=== PATIENT | female | born 1930 | race Caucasian/White ===

== ENCOUNTER 2017-08-07 06:41 | Emergency (ER) | payer MEDICARE ==
[~2017-08-07] VITALS: Ht 152.4 cm; Wt 61.2 kg
[~2017-08-07 06:41] MED LIST: ALEN70TA3 PO; CALCIUM; HYDR25TA4 PO; NIFE60TA83 PO; OMEGA; VIT; aspirin; potasium; vitamins
[2017-08-07 06:45] VITALS: BP_SYST 129
--- NOTE | 2017-08-07 06:45 | NUR ---
Patient to ER bed 6 to gown for evaluation. Side rails up.
[2017-08-07] MEDS ORDERED: NACL 0.9% 1,000 ML IV ONE (06:58)
[2017-08-07] MEDS ORDERED: KETOROLAC TROMETHAMINE 30 MG VIAL IVP ONE (07:00)
--- NOTE | 2017-08-07 07:00 | NUR ---
Pt complains of epigastric pain that radiates to the right since 2am this morning. Per pt, pain woke her up and took medicine but did not relieve pain. Pt denies fever, N/V or diarrhea, pain/burning upon urination. Pt is AAO x 4 and ambulatory. No other injuries/complaints per patient or noted.
--- NOTE | 2017-08-07 07:01 | NUR ---
ER Dr. John at bedside examining patient.
--- NOTE | 2017-08-07 07:02 | NUR ---
Medication reconciliation completed with information provided by patient. Any prior medication reconciliation on file was reviewed and corrected.
[2017-08-07] MEDS ORDERED: POTASSIUM CHLORIDE PO (07:03)
[2017-08-07 07:29] LABS: HEMATOCRIT 38.1 % (36-48); HEMOGLOBIN 11.9 g/dL (12.0-16.0); MEAN CORPUSCULAR HEMOGLOBIN 25 pg (27-31); MEAN CORPUSCULAR HGB CONC 31 % (32-36); MEAN CORPUSCULAR VOLUME 79 fL (79.0-98.0); PLATELET COUNT (AUTO) 233 K/uL (130-430); RED BLOOD CELL COUNT(AUTO) 4.82 MIL/uL (4.2-6.2); RED CELL DISTRIBUTION WIDTH 14.5 % (9.0-15.0); WHITE BLOOD COUNT (AUTO) 9.7 K/uL (4.8-10.8)
[2017-08-07 07:34] LABS: ANION GAP 7 (5-15); CALCIUM 8.4 mg/dL (8.4-11.0); CHLORIDE 100 mmol/L (98-107); CREATININE 0.51 mg/dL (0.55-1.30); GLUCOSE 140 mg/dL (70-99); POTASSIUM 3.1 mmol/L (3.5-5.1); SODIUM SERUM 137 mmol/L (136-145); UREA NITROGEN, BLOOD 15 mg/dL (8-21)
[2017-08-07 07:44] LABS: ALANINE AMINOTRANSFERASE 19 U/L (12-78); ALBUMIN 3.5 g/dL (3.4-4.8); ASPARTATE AMINOTRANSFERASE 23 U/L (10-37); LIPASE 128 U/L (73-393); TOTAL BILIRUBIN 0.5 mg/dL (0.0-1.0)
[2017-08-07 07:55] LABS: BAND % (MANUAL) 3 % (0-6); LYMPHOCYTES % (MANUAL) 14 % (20-46)
[2017-08-07 07:56] LABS: BASOPHILS % (MANUAL) 0 % (0-2); EOSINOPHILS % (MANUAL) 0 % (0-7); MONOCYTES % (MANUAL) 4 % (0-11)
--- NOTE | 2017-08-07 08:00 | NUR ---
Off unit for CT.
--- NOTE | 2017-08-07 08:10 | NUR ---
Back from CT.
--- NOTE | 2017-08-07 08:47 | NUR ---
At rest in bed no pain or nausea at this time.
[2017-08-07] MEDS ORDERED: LEVOFLOXACIN 500 MG/D5W 100 ML IV ONE (09:15)
[2017-08-07] MEDS ORDERED: POTASSIUM CHLORIDE 20 MEQ TAB.PRT.SR PO ONE (09:15)
--- NOTE | 2017-08-07 09:31 | NUR ---
Medication given to pt, tolerated well
--- NOTE | 2017-08-07 09:37 | NUR ---
Dr Holland is at bedside explaining results to pt.
--- NOTE | 2017-08-07 10:57 | NUR ---
Patient to be transferred to [facility] ER. Is being transferred due to higher level of care. Receiving facility has accepting physician and available space. ER physician has signed transfer form. Patient or responsible libertarian has agreed to transfer and signed form. Patient belongings inventoried and will be sent with patient. Copy of nursing notes, lab reports, EKG, Physicians Orders and X-rays to be sent with patient. Report to be called to [phone] at receiving facility. Receiving physician is Dr. Cosme. [facility] ambulance service has been called for transfer. ETA is [id number].
[2017-08-07 11:49] LABS: BILIRUBIN,URINE NEGATIVE (NEGATIVE); BLOOD, URINE NEGATIVE (NEGATIVE); CLARITY/URINE CLEAR (CLEAR); COLOR,URINE YELLOW (YELLOW); GLUCOSE,URINE NEGATIVE (NEGATIVE); KETONES,URINE NEGATIVE (NEGATIVE); LEUKOCYTE ESTERASE ,URINE NEGATIVE (NEGATIVE); NITRITE, URINE NEGATIVE (NEGATIVE); PROTEIN URINE NEGATIVE (NEGATIVE); UROBILINOGEN,URINE 0.2 (0.2-1.0)
--- NOTE | 2017-08-07 11:52 | NUR ---
Endorsed to Abhijit SORTO at [facility].
[2017-08-07 12:11] VITALS: BP_SYST 116
--- NOTE | 2017-08-07 12:12 | NUR ---
[facility] is here to pick up driver pt to transfer to [facility], family is at bedside.
== END 2017-08-07 12:11 | disposition short-term general hospital (02) ==
LOC: SED 06:41
DX: R10.11 Right upper quadrant pain (principal); K21.9 Gastro-esophageal reflux disease without esophagitis; I10 Essential (primary) hypertension; Z88.0 Allergy status to penicillin; Z79.899 Other long term (current) drug therapy
CPT/HCPCS: 36415; 74176; 81003; 80053; 83605; 83690; 84484; 85007; 85027; 87040; 93005; 96365; 96375; 99285; J1885; J1956; J7030